=== PATIENT | male | born 1945 | race Caucasian/White ===

== ENCOUNTER 2023-11-07 10:30 | Emergency (ER) | payer MEDICARE ==
[~2023-11-07] VITALS: Ht 182.9 cm; Wt 90.7 kg
[2023-11-07 10:41] VITALS: BP 167/101
[2023-11-07 11:38] LABS: BASOPHILS ABSOLUTE AUTO 0.06 K/mm3 (0.00-0.23); BASOPHILS PERCENT AUTO 1 % (0-2); EOSINOPHILS ABSOLUTE AUTO 0.15 K/mm3 (0.00-0.68); EOSINOPHILS PERCENT AUTO 1 % (0-6); Hematocrit 41.7 % (37.0-53.0); Hemoglobin 13.9 g/dL (13.5-17.5); IMMATURE GRAN ABSOLUTE AUTO 0.05 K/mm3 (0.00-0.10); IMMATURE GRAN PERCENT AUTO 0 % (0-1); LYMPHOCYTES ABSOLUTE AUTO 2.88 K/mm3 (0.84-5.20); LYMPHOCYTES PERCENT AUTO 24 % (21-46); MONOCYTES ABSOLUTE AUTO 0.79 K/mm3 (0.16-1.47); MONOCYTES PERCENT AUTO 7 % (4-13); Mean Corpuscular HGB 31.4 pg (26.0-34.0); Mean Corpuscular HGB Conc 33.3 g/dL (31.5-36.5); Mean Corpuscular Volume 94 fL (80-100); Mean Platelet Volume 10.9 fL (9.1-12.4); NEUTROPHILS ABSOLUTE AUTO 7.85 K/mm3 (1.96-9.15); NEUTROPHILS PERCENT AUTO 67 % (41-73); Platelet Count 260 K/mm3 (150-400); RDW Standard Deviation 48.3 fL (35.1-46.3); Red Blood Cell Count 4.42 M/mm3 (4.30-5.90); White Blood Cell Count 11.78 K/mm3 (4.00-11.30)
[2023-11-07 12:02] LABS: Albumin, Blood 3.7 g/dL (3.4-5.0); Albumin/Globulin Ratio 1.1 (0.8-1.8); Bilirubin, Total 1.1 mg/dL (0.1-1.0); Bun/Creatinine Ratio 16.7 (12.0-20.0); Calcium, Blood 9.4 mg/dL (8.5-10.1); Creatinine, Blood 1.14 mg/dL (0.60-1.20); Globulin, Blood 3.5 g/dL (2.2-4.0); Potassium, Blood 4.2 mmol/L (3.5-5.5); Total Protein, Blood 7.2 g/dL (6.4-8.2)
[2023-11-07 12:06] LABS: Influenza A, PCR NEGATIVE (NEGATIVE); Influenza B, PCR NEGATIVE (NEGATIVE); Resp Syncytial Virus, PCR NEGATIVE (NEGATIVE); SARS-Cov-2 (COVID-19) PCR, MMC NEGATIVE (NEGATIVE)
[2023-11-07] MEDS ORDERED: METF500 PO (12:26)
[2023-11-07] MEDS ORDERED: LOSA50 PO (12:26)
[2023-11-07] MEDS ORDERED: AZIT250 PO (13:18)
[2023-11-07] MEDS ORDERED: Prednisone20 MG PO (13:18)
== END 2023-11-07 13:34 | disposition home or self-care (01) ==
LOC: ER 10:30
PROVIDERS: Physician Assistant
DX: J18.0 Bronchopneumonia, unspecified organism (principal); E11.9 Type 2 diabetes mellitus without complications; Z79.84 Long term (current) use of oral hypoglycemic drugs; Z79.52 Long term (current) use of systemic steroids; Z79.899 Other long term (current) drug therapy; Z87.891 Personal history of nicotine dependence; Z11.52 Encounter for screening for COVID-19
CPT/HCPCS: 0241U; 71046; 80053; 85025; 93005; 93010; 99285-25

== ENCOUNTER 2024-06-08 08:52 | Inpatient (IN) | payer MEDICARE ==
[~2024-06-08] VITALS: Ht 185.4 cm; Wt 89.0 kg
[~2024-06-08 08:52] MED LIST: AZIT250 PO; LOSA50 PO; METF500 PO; Prednisone20 MG PO
[2024-06-08 09:52] LABS: BASOPHILS ABSOLUTE AUTO 0.08 K/mm3 (0.00-0.23); BASOPHILS PERCENT AUTO 1 % (0-2); EOSINOPHILS ABSOLUTE AUTO 0.13 K/mm3 (0.00-0.68); EOSINOPHILS PERCENT AUTO 1 % (0-6); Hematocrit 42.6 % (37.0-53.0); Hemoglobin 13.7 g/dL (13.5-17.5); IMMATURE GRAN ABSOLUTE AUTO 0.05 K/mm3 (0.00-0.10); IMMATURE GRAN PERCENT AUTO 0 % (0-1); LYMPHOCYTES ABSOLUTE AUTO 3.44 K/mm3 (0.84-5.20); LYMPHOCYTES PERCENT AUTO 26 % (21-46); MONOCYTES ABSOLUTE AUTO 1.11 K/mm3 (0.16-1.47); MONOCYTES PERCENT AUTO 9 % (4-13); Mean Corpuscular HGB 31.6 pg (26.0-34.0); Mean Corpuscular HGB Conc 32.2 g/dL (31.5-36.5); Mean Corpuscular Volume 98 fL (80-100); Mean Platelet Volume 12.2 fL (9.1-12.4); NEUTROPHILS ABSOLUTE AUTO 8.21 K/mm3 (1.96-9.15); NEUTROPHILS PERCENT AUTO 63 % (41-73); Platelet Count 210 K/mm3 (150-400); RDW Coefficient Variation 14.8 % (11.7-14.2); RDW Standard Deviation 53.4 fL (35.1-46.3); Red Blood Cell Count 4.33 M/mm3 (4.30-5.90); White Blood Cell Count 13.02 K/mm3 (4.00-11.30)
[2024-06-08 10:20] LABS: Albumin, Blood 4.2 g/dL (3.4-5.0); Albumin/Globulin Ratio 1.6 (0.8-1.8); Bilirubin, Total 2.3 mg/dL (0.1-1.0); Bun/Creatinine Ratio 21.2 (12.0-20.0); Calcium, Blood 9.6 mg/dL (8.5-10.1); Creatinine, Blood 1.56 mg/dL (0.60-1.20); Globulin, Blood 2.7 g/dL (2.2-4.0); Total Protein, Blood 6.9 g/dL (6.4-8.2)
[2024-06-08] MEDS ORDERED: Furosemide 10 MG / ML 2ML Vial IV ONE (11:45)
[2024-06-08 12:00] LABS: CHOL/HDL RATIO 2.2; Cholesterol 100 mg/dL (50-200); HDL Cholesterol 45 mg/dL (>39); LDL/HDL RATIO 0.8; Low Density Lipoprotein Chol 37 mg/dL (0-110); Triglycerides 91 mg/dL (30-160); Very Low Density Lipoprot Chol 18 mg/dL (6-32)
[2024-06-08] MEDS ORDERED: Ondansetron HCl 2 MG / ML 2ML Vial IV PRN (12:20)
[2024-06-08] MEDS ORDERED: Magnesium Hydroxide Conc 10 ML UDC PO PRN (12:20)
[2024-06-08] MEDS ORDERED: FLU VACC TS2024-25(6MOS UP)/PF 45 MCG/0.5 ML SYRINGE IM SCH (12:20)
[2024-06-08] MEDS ORDERED: Aspirin 81 MG Chew PO SCH (13:00)
[2024-06-08] MEDS ORDERED: Atorvastatin 40 MG Tab PO SCH (14:00)
[2024-06-08 14:16] LABS: International Normalized Ratio 1.36; Prothrombin Time Results 14.2 Sec (9.7-11.5)
[2024-06-08 14:18] LABS: Anti-Xa UFH, PHA Monitoring >1.50 IU/mL
[2024-06-08 14:45] VITALS: BP 119/107
[2024-06-08] MEDS ORDERED: ELIQUIS2.5 MG PO (14:57)
[2024-06-08] MEDS ORDERED: LOSA25 PO (14:57)
--- NOTE | 2024-06-08 16:15 | NUR ---
REPORT RECIEVED FROM ER NURSE AT 1425. PT ARRIVED TO PCU AT 1440 VIA GURNEY AND ON RA. PT ABLE TO AMBULATE FROM RMORRISON IN THE HALLWAY TO PCU BED, TOLERATED FAIR. PT REPORT SLIGHT DYSPNEA WITH THE EXERTION. PT A/OX4 AT TIME OF ARRIVAL. PT ABLE TO ANSWER HISTORY QUESTIONS APPROPIATELY. PT ORIENTED TO ROOM AND CALL LIGHT. LUNGS SOUNDS DIM UPPER AND DIM WITH CRACKLES.
[2024-06-08] MEDS ORDERED: Insulin Human Lispro 100 Units/ML 3ML Syringe SC SCH (16:30)
[2024-06-08] MEDS ORDERED: Furosemide 10 MG/ML 4ML Vial IV SCH (18:00)
--- NOTE | 2024-06-08 18:09 | NUR ---
SHIFT SUMMARY PT A/OX4 AN COOPERATIVE OF CARE. PT ABLE TO EXPRESS NEEDS AND CALLS APPROPIATE. VSS SINCE ARRIVING TO UNIT. PT DENIED CHEST PAIN/PRESSURE SINCE ARRIVING TO UNIT. PT DID ENDORSE SLIGHT SOB AT TIMES WHILE IN BED AND WHEN PT IS AMBULATING. SATS REMAINED STABLE IN THE 90'S ON RA. PT INFORMED OF NPO AT MIDNIGHT FOR POSSIBLE ANGIO. PT HR AFIB WITH A CONTROLLED RATE. ORDER FOR HEP GTT TO BEGIN TONIGHT DUE TO PT TAKING BLOOD THINNER THIS MORNING AT HOME.
[2024-06-08 19:30] VITALS: BP 130/71
[2024-06-08] MEDS ORDERED: Heparin Sodium,Porcine/0.5 NS 500 ML IV SCH (21:00)
[2024-06-09] VITALS (14 sets, daily range): BP systolic 126–158; BP diastolic 79–131
[2024-06-09 04:13] LABS: BASOPHILS ABSOLUTE AUTO 0.07 K/mm3 (0.00-0.23); BASOPHILS PERCENT AUTO 1 % (0-2); EOSINOPHILS ABSOLUTE AUTO 0.14 K/mm3 (0.00-0.68); EOSINOPHILS PERCENT AUTO 1 % (0-6); Hematocrit 40.3 % (37.0-53.0); Hemoglobin 13.3 g/dL (13.5-17.5); IMMATURE GRAN ABSOLUTE AUTO 0.04 K/mm3 (0.00-0.10); IMMATURE GRAN PERCENT AUTO 0 % (0-1); LYMPHOCYTES ABSOLUTE AUTO 4.47 K/mm3 (0.84-5.20); LYMPHOCYTES PERCENT AUTO 37 % (21-46); MONOCYTES ABSOLUTE AUTO 0.89 K/mm3 (0.16-1.47); MONOCYTES PERCENT AUTO 7 % (4-13); Mean Corpuscular Volume 97 fL (80-100); Mean Platelet Volume 12.4 fL (9.1-12.4); NEUTROPHILS PERCENT AUTO 54 % (41-73); Platelet Count 176 K/mm3 (150-400); RDW Coefficient Variation 14.9 % (11.7-14.2); RDW Standard Deviation 53.5 fL (35.1-46.3); Red Blood Cell Count 4.15 M/mm3 (4.30-5.90); White Blood Cell Count 12.21 K/mm3 (4.00-11.30)
[2024-06-09 04:39] LABS: Anion Gap 13 mmol/L (3-11); Blood Urea Nitrogen 32 mg/dL (8-24); Bun/Creatinine Ratio 20.9 (12.0-20.0); CHOL/HDL RATIO 2.6; CO2, Blood 24 mmol/L (21-32); Calcium, Blood 9.4 mg/dL (8.5-10.1); Chloride, Blood 105 mmol/L (98-108); Cholesterol 105 mg/dL (50-200); Creatinine, Blood 1.53 mg/dL (0.60-1.20); Glomerular Filtration Rate 46 (60-); Glucose, Blood 139 mg/dL (70-99); HDL Cholesterol 41 mg/dL (>39); LDL/HDL RATIO 1.2; Low Density Lipoprotein Chol 49 mg/dL (0-110); Potassium, Blood 3.7 mmol/L (3.5-5.5); Sodium, Blood 138 mmol/L (136-145); Triglycerides 73 mg/dL (30-160); Very Low Density Lipoprot Chol 14 mg/dL (6-32)
[2024-06-09] MEDS ORDERED: Dose Adjust by Pharmacy XX STA (05:10)
--- NOTE | 2024-06-09 05:13 | NUR ---
CRITICAL PTT RESULT OF >139. CALLED PHARMACY RIGHT AWAY AND PUT THE HEPARIN GTT ON HOLD. HOLD INFUSION FOR 1 HOUR PER PHARMACY.
[2024-06-09] MEDS ORDERED: Metoprolol Succinate 25 MG TABCR PO SCH ×2 (09:00)
[2024-06-09] MEDS ORDERED: NS 250 ML IV ONE (09:04)
[2024-06-09] MEDS ORDERED: Verapamil HCL 2.5 MG/ML 2ML Injection ONE (09:04)
[2024-06-09] MEDS ORDERED: Heparin Sodium 1000 Units/ML 10ML MDV ONE ×2 (09:04→10:44)
[2024-06-09] MEDS ORDERED: Nitroglycerin 2 MG/20 ML BTL ONE (09:04)
[2024-06-09] MEDS ORDERED: NS 1,000 ML IV ONE ×2 (09:04→09:06)
[2024-06-09] MEDS ORDERED: Midazolam HCl 1MG / ML 2ML Vial ONE (09:06)
[2024-06-09] MEDS ORDERED: FentaNYL Citrate 50 MCG/ML 2 ML Injection ONE (09:06)
--- NOTE | 2024-06-09 09:49 | NUR ---
AM NOTE: PATIENT ALERT AND ORIENTED X4. EXPRESSING SOME NERVES AND ANXIETY SURROUNDING UPCOMING ANGIOGRAM. THIS RN REINFORECED ANGIOGRAM EDUCATION. DENIES PAINS/NUMBNESS/TINGLING. UP WITH SBA TO HELP MANAGE CORDS. IND WITH MOVEMENTS IN BED. ON ROOM AIR. SOB WITH ACTIVITY. DENIES COUGH. LUNGS SOUNDS CLEAR WITH SOME FINE CRACKLES IN BASES. EVEN AND UNLABORED RESPIRATIONS AT REST. TELE SHOWING SR WITH PVC'S. HR 80-100'S. DENIES CHEST PAIN/PRESSURE/PALPITATIONS. SBP 130'S. PPP. NO EDEMA NOTED. HEPARIN GTT INFUSING THIS AM AND PLACED ON HOLD AROUND 0920 FOR ANGIOGRAM. PHARMACY UPDATED. BOWEL TONES PRESENT. PATIENT HAS BEEN NPO SINCE MIDNIGHT. DENIES ABDOMINAL PAIN/NAUSEA. STRICT I&O. PATIENT EDUCATED ON STAFF MEASURING ALL INTAKE AND OUTPUT. SKIN OVERALL C/D/I. PATIENT LEFT FOR ANGIOGRAM AT 0927. AT BEDSIDE PRIOR TO ANGIOGRAM AND UPDATED ON PLAN OF CARE.
[2024-06-09] MEDS ORDERED: Ticagrelor 90 MG TABLET ONE (10:44)
[2024-06-09] MEDS ORDERED: Furosemide 10 MG / ML 2ML Vial ONE (12:03)
--- NOTE | 2024-06-09 12:29 | NUR ---
PATIENT RETURNS BACK FROM BOTTLE PACKER AT THIS TIME. RESPIRATORY RATE 20, PATIENT STATES HE IS FEELING SOB. COACHED THROUGH SLOW BREATHING. PATIENT ABLE TO RELAX. SATING 99-100% ON ROOM AIR. TELE SHOWING AFIB WITH HR 90-100'S. DENIES CHEST PAIN. RIGHT RADIAL SITE, TR BAND AND ARM BOARD IN PLACE. SOFT AND NONTENDER. NO SIGNS OF BLEEDING. RADIAL SITE PRECAUTIONS REINFORCED. RIGHT ELBOW VENOUS SITE WITH AMILCAR DRESSING OOZING, PRESSURE HELD AND OOZING RESOLVED. ADDITIONAL LASIX GIVEN DURING BOTTLE PACKER PROCEDURE. STRICT I&O. POST PROCEDURE VITALS IN PROGRESS.
[2024-06-09] MEDS ORDERED: NS 500 ML IV SCH (13:10)
--- NOTE | 2024-06-09 13:35 | NUR ---
DR. DAILEY TO BEDSIDE. ORDERS FOR THIS RN TO PLACE: - NORMAL SALINE 50 ML/HR X7 HOURS - START HEPARIN 4 HOURS POST TR BAND REMOVAL - 40 MG IV LASIX X1 TONIGHT - 80 MG IV LASIX BID STARTING 11/25 AM EKG COMPLETED AND IN CHART. AT BEDSIDE AND UPDATED. POST PROCEDURE VITALS CONTINUE.
[2024-06-09] MEDS ORDERED: HyDROXyzine HCl 25 MG Tab PO PRN (14:25)
[2024-06-09] MEDS ORDERED: LORazepam 2 MG/ML 1ML Injection IV PRN (14:25)
--- NOTE | 2024-06-09 15:48 | NUR ---
PATIENT VERY ANXIOUS WITH ANY STAFF IN ROOM DISCUSSING PLAN OF CARE. DR. GUNDERSON CALLED AND ANXIETY MEDS ORDERED. DAUGHTER JOSE CALLED WITH PATIENT PERMISSION AND UPDATED POST CHICKEN TENDER. PATIENT SITTING ON EDGE OF BED AT THIS TIME TALKING ON CELL PHONE. TR BAND REMOVAL IN PROGRESS. VITAL SIGNS STABLE. BED ALARM ON FOR SAFETY PATIENT GETS THE URGE TO PEE AND GETS TANGLED IN CORDS TRYING TO GET UP.
[2024-06-09] MEDS ORDERED: Furosemide 10 MG/ML 4ML Vial IV ONE (18:00)
--- NOTE | 2024-06-09 18:19 | NUR ---
TR BAND REMOVED AT 1720. PLAN TO RESTART HEPARIN 4 HOURS POST TR BAND REMOVAL. PHARMACY AND PATIENT UPDATED. TELE CONTINUES TO SHOW SR WITH PACS. REMAINS ON ROOM AIR. ANXIETY IMPROVED. MALE PW PLACED DUE TO PATIENT URGENCY WITH LASIX AND GETTING TANGLED IN CORDS. IV PULLED BY PATIENT BY ACCIDENT, NEW IV PLACED. BED ALARM IN PLACE. CONTINUES TO DENY CHEST PAIN/PRESSURE/PALPITATIONS.
[2024-06-09] MEDS ORDERED: LORazepam 2 MG/ML 1ML Injection IV ONE (21:46)
--- NOTE | 2024-06-09 22:34 | NUR ---
APPROX 2200 PT'S BED ALARM WENT OFF, CAME INTO THE ROOM TO FIND HIM SITTING ON THE EDGE OF THE BED SWAYING BACK AND FORTH WANTING TO STAND UP. I WENT TO HIS SIDE TO TALK HELP LAY HIM BACK DOWN BUT HE GRABBED MY ARMS AND KEPT TRYING TO STAND UP. I WAS TRYING TO REORIENT HIM AND KEEP HIM SAFE, PARAM (FIELD CONTACT PERSON) CAME IN TO HELP AND PT BEGAN TO KICK AND SWING AT US. HE WAS MUMBLING INCOHERENTLY AND PULLING AT ALL OF HIS LINES, CORDS, TUBES. REPEATEDLY SAID HE HAD TO GET UP TO PEE (PT HAS PUREWICK IN PLACE THAT IS PATENT AND FUNCTIONING) AND WOULD NOT REDIRECTABLE. KVNG (OPERATIONS LABEL CLERK) CAME IN TO ASSIST AND THE THREE OS US WERE ABLE TO GET HIM REPOSITIONED ON THE BED, HOWEVER, PT'S AGITATION INCREASED AND CONTINUED TO TRY AND FIGHT US OFF AND PULL AT ANYTHING HE COULD GRASP. HE DID NOT CALM DOWN OR UNDERSTAND HIS SITUATION EVEN WITH CONSTANT REORIENTATION. KVNG CALLED THE DR AND RECEIVED AN ORDER FOR ATIVAN IVP WHICH WAS GIVEN. KVNG ALSO CALLED FAMILY TO UPDATE THEM AND ASK ABOUT HIS NIGHTTIME BEHAVIOR AT HOME. ALEXX (RN) CAME IN TO ASSIST WELL AND HELPED CALM HIM DOWN LONG ENOUGH FOR SLEEP TO TAKE OVER. THERE WAS NO CLINICAL SITTER AT THE TIME SO I STAYED AT THIS BEDSIDE TO ENSURE HIS SAFETY UNTIL A SITTER CAN GET HERE. AVAILABLE TO I
[2024-06-10] VITALS (7 sets, daily range): BP systolic 122–149; BP diastolic 67–95
[2024-06-10] MEDS ORDERED: Dose Adjust by Pharmacy XX STA ×2 (04:40→11:44)
[2024-06-10 04:44] LABS: Bun/Creatinine Ratio 20.9 (12.0-20.0); Calcium, Blood 8.9 mg/dL (8.5-10.1); Creatinine, Blood 1.48 mg/dL (0.60-1.20); Potassium, Blood 2.9 mmol/L (3.5-5.5)
[2024-06-10 05:33] LABS: Hematocrit 36.8 % (37.0-53.0); Hemoglobin 12.5 g/dL (13.5-17.5); Mean Platelet Volume 12.2 fL (9.1-12.4); Platelet Count 159 K/mm3 (150-400)
[2024-06-10] MEDS ORDERED: Potassium Chloride 10 Meq Tablet SA PO ONE ×2 (05:34→18:00)
[2024-06-10] MEDS ORDERED: Potassium Chl 20MEQ/Water100ML 100 ML IV STA (05:44)
--- NOTE | 2024-06-10 06:33 | NUR ---
AT 0615 PT WOKE UP AGITATED SAYING HE HAD TO GET UP TO PEE. SITANGUS RAMIREZ, AT BEDSIDE BUT WAS UNABLE TO REDIRECT HIM AND ASKED ME FOR HELP. I ALSO WAS UNABLE TO REDIRECT OR REORIENT HIM TO HIS SITUATION, FIXATED ON GETTING UP TO GO TO THE BATHROOM AND "GET THE HELL OUT OF HERE". AFTER ABOUT 6 MINUTES OF KEEPING HIM IN THE BED, HE BECAME VERY AGGRESSIVE AND STARTED GRAB AND PULL AT ANGUS AND TRIED TO THROW A PUNCH AT ME. I CALLED OUT FOR HELP IN THE ROOM AND 5 MORE PEOPLE SHOWED UP AND WE WERE ALL ABLE TO GET HIM REPOSITIONED FURTHER UP THE BED AND HE EVENTUALLY TIRED OUT AND BEGAN TO REST AGAIN. THAT IS UNTIL HE WAS HOOKED UP TO THE EKG MACHINE AND BECAME AGITATED AGAIN. TWO SITTERS, MYSELF, AND THE HOME PERFORMANCE LABORER HAD TO KEEP IN BED FOR THE TEST.
[2024-06-10] MEDS ORDERED: Mag Sulfate 1 GM/D5% 100ML 100 ML IV ONE (07:50)
[2024-06-10] MEDS ORDERED: Potassium Chloride 20 MEQ TabCR PO ONE ×2 (07:50)
[2024-06-10] MEDS ORDERED: Mag Sulfate 1 GM/D5% 100ML 100 ML IV STA (07:52)
[2024-06-10] MEDS ORDERED: Clopidogrel Bisulfate 300 MG Cap PO ONE (09:00)
[2024-06-10] MEDS ORDERED: Furosemide 10 MG/ML 10ML Vial IV SCH ×2 (09:00)
[2024-06-10] MEDS ORDERED: Haloperidol Lactate Inj. 5 MG/ML Injection IV PRN (09:20)
[2024-06-10] MEDS ORDERED: Potassium Chloride 40 MEQ IV ONE (09:35)
[2024-06-10] MEDS ORDERED: Potassium Chl 20MEQ/Water100ML 100 ML IV SCH (10:00)
--- NOTE | 2024-06-10 12:48 | NUR ---
AM NOTE: PATIENT RESTING IN BED WITH EYES CLOSED. WAKES TO VOICE. WHEN AWAKE PATIENT VERY AGGITATED AND IRRITABLE. CONFUSED, ANGRY, NOT FOLLOWING DIRECTIONS, AT TIMES SWINGING AND KICKING AT STAFF, YELLING, AND NOT SAFE ALONE IN ROOM DUE TO TRYING TO GET OUT OF BED. SITTER AT BEDSIDE. TO BEDSIDE AROUND 0930, UPDATED BY THIS RN. DR. GUNDERSON CALLED THIS AM DUE TO AGGITATION AND PATIENT NOT FOLLOWING DIRECTIONS. HALDOL ORDERS IN PLACE. PATIENT CALM POST HALDOL ADMINISTRATION. TELE SHOWING SR WITH PAC'S. HR 80'S-100'S. SBP 120-130'S. S/P PCI WITH RIGHT RADIAL AND RIGHT ELBOW VENOUS SITE. SITES SOFT AND NON TENDER. TEGADERMS IN PLACE. HEPARIN GTT CONTINUES TO INFUSE PER EMAR. POTASSIUM AND MAG REPLACED THIS AM VIA IV. PATIENT NOT FOLLOWING DIRECTIONS TO SWALLOW PILLS AT THIS TIME. PLAN FOR ECHO TODAY. IV LASIX DOSE DECREASED THIS AM BY DR. DAILEY. SEE I&O CHARTING. ON 2-3L NASAL CANNULA SATING ABOVE 95%. LUNGS SOUNDS CLEAR AND DIM IN BASES. EVEN AND UNLABORED RESPIRATIONS. NO COUGH NOTED. BOWEL TONES PRESENT. PUREWICK IN PLACE DRAINING YELLOW URINE. PATIENT NOT ALERT ENOUGH TO EAT BREAKFAST OR LUNCH. ACHS BLOOD SUGARS. SMALL SCAB NOTED ON SCROTUM. PATIENT PULLING AT TIMES ON PUREWICK. VITAL SIGNS STABLE. AT BEDSIDE. THIS RN UPDATED DAUGHTER JOSE OVER PHONE.
--- NOTE | 2024-06-10 15:30 | NUR ---
ECHO COMPLETED THIS AFTERNOON. PATIENT WOKEN BY THIS RN. AGGITATED BUT ABLE TO TELL ME WHERE HE IS AND WHO HE IS. AT BEDSIDE ATTEMPTING WITH THIS RN AND SITTER TO HELP CALM PATIENT. PATIENT ABLE TO TAKE SIPS OF WATER. WITH WIFES HELP PATIENT TAKES ORAL PLAVIX, ASPIRIN, ATORVOSTATIN AND METOPROLOL THAT WERE DUE THIS MORNING. CARDIOLOGY DR. DAILEY UPDATED ON LATE PO ADMINISTRATION. POTASSIUM COMPLETED AT THIS TIME. LAB DRAW SCHEDULED FOR 1600. PATIENT SITTING UP IN BED AWAKE AT THIS TIME. DENIES FOOD AT THIS TIME. VITAL SIGNS STABLE. ORIENTATION AND ALERTNESS IMPROVING.
[2024-06-10 16:32] LABS: Bun/Creatinine Ratio 19.2 (12.0-20.0); Calcium, Blood 9.3 mg/dL (8.5-10.1); Creatinine, Blood 1.3 mg/dL (0.60-1.20); Potassium, Blood 3.4 mmol/L (3.5-5.5)
--- NOTE | 2024-06-10 17:10 | NUR ---
DR. GUNDERSON CALLED BY THIS RN TO UPDATE ON BMP LAB RESULTS. NO NEW ORDERS FOR THIS RN TO PLACE.
[2024-06-10] MEDS ORDERED: TraZODone HCl 50 MG Tab PO PRN (17:15)
--- NOTE | 2024-06-10 18:18 | NUR ---
SHIFT SUMMARY: PATIENT IS ALERT AND ORIENTED X3. BEING VERY PLEASENT AND COOPERATIVE THIS EVENING. FOLLOWING COMMANDS. DENIES PAIN. TELE SHOWING SR WITH PVC/PAC'S WITH HR 80-100'S. RIGHT RADIAL SITE C/D/I AND NO SIGNS OF BLEEDING. HEPARIN GTT INFUSING PER EMAR. ON ROOM AIR AT THIS TIME SATING ABOVE 95%. BOWEL TONES PRESENT. TOLERATING PO DIET. ACHS BLOOD SUGARS. HAS GONE HOME. SITTER REMAINS AT BEDSIDE. PUREWICK REMAINS IN PLACE. CALL LIGHT IN REACH. DENIES NEEDS.
--- NOTE | 2024-06-10 21:26 | NUR ---
ASSUMPTION OF CARE ASSUMED CARE OF PATIENT AT 1900, BEDSIDE SHIFT REPORT RECEVIED FROM KITTY RN. PT RESTING IN BED, SLEEPING BUT AROUSABLE. PT ORIENTED X4, ANSWERS QUESTIONS APPROPRIATELY, FOLLOWS DIRECTION WHEN PROMPTED AND IS ABLE TO MAKE HIS NEEDS KNOWN. PT MOVES EXTREMITIES EQUALLY BILATERALLY. PT DENIES PAIN AT TIME OF ASSESSMENT. HR 90-100 SINUS, MAP >65 PT DENIES CP/PRESSURE. PT ON RA, OXYGEN SATURATION >95%. ABDOMEN SOFT, BOWEL TONES ACTIVE THROUGHOUT. PT DENIES N/V. MALE PUREWICK IN PLACE TO SUCTION WITH GOOD SEAL. PIV IN PLACE TO R WRIST AND L WRIST. HEPARIN INFUSING AT 10UNITS/KG/HR PER ORDER, HEPAIN VERIFIED WITH KVNG VIDAL. 1:1 SITTER AT THE BEDSIDE, BED IN LOWEST POSITION, CALL LIGHT WITHIN REACH, CARE CONTINUES.
[2024-06-11] MEDS ORDERED: Dose Adjust by Pharmacy XX STA (01:36)
[2024-06-11 04:17] VITALS: BP 143/69
[2024-06-11 04:20] VITALS: BP 143/69
--- NOTE | 2024-06-11 05:59 | NUR ---
SHIFT SUMMARY NO ACUTE CHANGES THIS SHIFT. PT CONTINUES TO REST IN BED SLEEPING BUT AROUSABLE. PT ANSWERS QUESTIONS APPROPRIATELY, FOLLOS DIRECTION WHEN PROMPTED AND IS ABLE TO MAKE HIS NEEDS KNOWN. PT MOVES EXTREMITIES EQUALLY BILATERALLY. PT DENIES PAIN THIS SHIFT. PT IS IMPULSIVE AT TIMES, BED ALARM ON, 1:1 SITTER DC'D THIS SHIFT. HR 80-110'S SINUS, MAP >65. PT DENIES CP/PRESSURE. PT ON RA, PLACED ON 3LPM VIA NC WHILE SLEEPING. ABDOMEN SOFT, BOWEL TONES ACTIVE THROUGHOUT. MALE PUREWICK IN PLACE TO SUCTION WITH GOOD SEAL, YELLOW OUTPUT NOTED. PIV IN PLACE TO LEFT WRIST AND RIGHT WRIST, HEPARIN INFUSING AT 10UNTIS/KG/HR PER PHARMACY. BED IN LOWEST POSITION, CALL LIGHT WITHIN REACH, CARE CONTINUES.
[2024-06-11 06:30] LABS: Hematocrit 37.9 % (37.0-53.0); Mean Corpuscular HGB 32.3 pg (26.0-34.0); Mean Corpuscular HGB Conc 34.3 g/dL (31.5-36.5); Mean Corpuscular Volume 94 fL (80-100); Mean Platelet Volume 11.7 fL (9.1-12.4); Platelet Count 178 K/mm3 (150-400); RDW Coefficient Variation 14.6 % (11.7-14.2); Red Blood Cell Count 4.02 M/mm3 (4.30-5.90); White Blood Cell Count 10.33 K/mm3 (4.00-11.30)
[2024-06-11 06:57] LABS: Bun/Creatinine Ratio 15.9 (12.0-20.0); Creatinine, Blood 1.57 mg/dL (0.60-1.20); Potassium, Blood 3.3 mmol/L (3.5-5.5)
[2024-06-11 07:24] VITALS: BP 127/75
--- NOTE | 2024-06-11 08:10 | NUR ---
AM NOTE this rn assumed care at 0700. vital signs stable. patient is alert and oriented x4. neuro is intact. patient is able to make needs known and use elisabeth light appropriately. denies pain, chest pain/pressure or shortness of breath. see shift assessment for further detials. plan of care up to date at this time
--- NOTE | 2024-06-11 08:41 | NUR ---
doctor in the room md DAILEY, healthcare architect, is in the room and discussing plan of care with the patient. plan for patient to do stress test and if stress test is negative no intervention needs to be done, if positive plan to do another stent as an outpatient. patient agrees to this plan of care
--- NOTE | 2024-06-11 08:46 | NUR ---
update md walters in the room with md johnson and discussed plan of care. plan of care remains up to date. see previous notes
[2024-06-11] MEDS ORDERED: K-TAB ER20 ME1 PO (08:48)
[2024-06-11] MEDS ORDERED: FURO20 PO (08:48)
[2024-06-11] MEDS ORDERED: Potassium Chloride 20 MEQ TabCR PO ONE (09:00)
[2024-06-11] MEDS ORDERED: Clopidogrel Bisulfate 75 MG Tab PO SCH (09:00)
[2024-06-11] MEDS ORDERED: Apixaban 5 MG Tab PO SCH (09:00)
--- NOTE | 2024-06-11 10:48 | NUR ---
update patient back in room from pictures for first part of stress test. remains npo for second part this afternoon.
[2024-06-11 11:28] VITALS: BP 116/66
[2024-06-11] MEDS ORDERED: Torsemide 20 MG TAB PO SCH (12:00)
[2024-06-11] MEDS ORDERED: Caffeine Citrated 60 MG/3 ML Vial ONE (13:31)
[2024-06-11] MEDS ORDERED: Regadenoson 0.4 MG/5 ML SYRINGE ONE (13:31)
--- NOTE | 2024-06-11 13:38 | NUR ---
stress test second part of stress test is being done
[2024-06-11 15:45] VITALS: BP 136/91
--- NOTE | 2024-06-11 18:10 | NUR ---
shift summary see previous notes. stress test back. plan to discharge patient, awaiting to see ck before patient leaves and is aware of this. vitals remain stable. neuro remains intact. no acute changes
[2024-06-11] MEDS ORDERED: CLOP75 PO (18:27)
[2024-06-11] MEDS ORDERED: LIPITOR80 MG PO (18:27)
[2024-06-11] MEDS ORDERED: ASPI81CH PO (18:27)
[2024-06-11] MEDS ORDERED: TORSE20 PO (18:27)
[2024-06-11] MEDS ORDERED: DULCOLAX400 MG/5 M PO (18:28)
[2024-06-11] MEDS ORDERED: TRAZ50 PO (18:29)
[2024-06-11] MEDS ORDERED: METO25ER PO (18:29)
[2024-06-11] MEDS ORDERED: Glipizide ER2.5 MG PO (18:30)
== END 2024-06-11 19:40 | disposition home or self-care (01) | DRG 321 ==
LOC: ER 08:52 → PCU 12:16
PROVIDERS: Emergency Medicine; Student in an Organized Health Care Education/Training Program; ADMIT Internal Medicine
PROC: 027034Z Dilation of Coronary Artery, One Artery with Drug-eluting Intraluminal Device, Percutaneous Approach (ICD-10-PCS; principal; 2024-06-09)
PROC: 4A023N8 Measurement of Cardiac Sampling and Pressure, Bilateral, Percutaneous Approach (ICD-10-PCS; 2024-06-09)
PROC: B2111ZZ Fluoroscopy of Multiple Coronary Arteries using Low Osmolar Contrast (ICD-10-PCS; 2024-06-09)
PROC: B240ZZ3 Ultrasonography of Single Coronary Artery, Intravascular (ICD-10-PCS; 2024-06-09)
DX: I13.0 Hypertensive heart and chronic kidney disease with heart failure and stage 1 through stage 4 chronic kidney disease, or unspecified chronic kidney disease (principal); G92.8 Other toxic encephalopathy; I50.23 Acute on chronic systolic (congestive) heart failure; I50.22 Chronic systolic (congestive) heart failure; I45.2 Bifascicular block; N17.9 Acute kidney failure, unspecified; I25.10 Atherosclerotic heart disease of native coronary artery without angina pectoris; I48.0 Paroxysmal atrial fibrillation; E78.5 Hyperlipidemia, unspecified; I25.5 Ischemic cardiomyopathy; E11.22 Type 2 diabetes mellitus with diabetic chronic kidney disease; N18.30 Chronic kidney disease, stage 3 unspecified; Z79.84 Long term (current) use of oral hypoglycemic drugs; Z79.899 Other long term (current) drug therapy
CPT/HCPCS: 36415; 36416; 71046; 76937; 78452; 80048; 80053; 80061; 82570; 82947; 83036; 83735; 83880; 84300; 84484; 85014; 85018; 85025; 85027; 85049; 85347; 85520; 85610; 85730; 92978; 93005; 93010; 93306; 93456; 96374; 99152; 99153; 99285-25; A9270; A9500; C1725; C1753; C1769; C1874; C1887; C1894; C9600; J0706; J1630; J1644; J1940; J2060; J2250; J2785; J3010; J3475; J3480; J7030; J7040; J7050; Q9957; Q9967

== ENCOUNTER 2024-08-18 00:09 | Emergency (ER) | payer OTHER, MEDICARE ==
[~2024-08-18] VITALS: Ht 185.4 cm; Wt 88.0 kg
[~2024-08-18 00:09] MED LIST changes: +ASPI81CH PO; +CLOP75 PO; +DULCOLAX400 MG/5 M PO; +ELIQUIS2.5 MG PO; +FURO20 PO; +Glipizide ER2.5 MG PO; +K-TAB ER20 ME1 PO; +LIPITOR80 MG PO; +LOSA25 PO; +METO25ER PO; +TORSE20 PO; +TRAZ50 PO
[2024-08-18] MEDS ORDERED: HYDROcodone 5-APAP 325 TAB PO ONE (01:05)
[2024-08-18] MEDS ORDERED: Morphine Sulfate 4 MG/1 ML Injection IV ONE (02:20)
[2024-08-18] MEDS ORDERED: Ondansetron HCl 2 MG / ML 2ML Vial IV ONE (02:20)
[2024-08-18 03:00] VITALS: BP 120/79
[2024-08-18] MEDS ORDERED: RX Prepack 6 Tabs Oxycodone 5mg UD ONE (03:05)
[2024-08-19] MEDS ORDERED: FARXIGA10 MG PO (08:03)
[2024-08-19] MEDS ORDERED: PREDNISOLO15 MG/5 ML (08:04)
== END 2024-08-18 03:48 | disposition home or self-care (01) ==
LOC: ER 00:09
DX: S42.202A Unspecified fracture of upper end of left humerus, initial encounter for closed fracture (principal); I11.0 Hypertensive heart disease with heart failure; I50.9 Heart failure, unspecified; E11.9 Type 2 diabetes mellitus without complications; I48.91 Unspecified atrial fibrillation; W01.0XXA Fall on same level from slipping, tripping and stumbling without subsequent striking against object, initial encounter; Z79.02 Long term (current) use of antithrombotics/antiplatelets; Z79.899 Other long term (current) drug therapy; Z88.8 Allergy status to other drugs, medicaments and biological substances
CPT/HCPCS: 29105; 70450; 73030; 73502; 93005; 93010; 96374-59; 96375-59; 99284-25; A9270; J2270; J2405

== ENCOUNTER 2024-08-19 09:16 | Emergency (ER) | payer MEDICARE ==
[~2024-08-19] VITALS: Ht 185.4 cm; Wt 86.2 kg
[~2024-08-19 09:16] MED LIST changes: +FARXIGA10 MG PO; +PREDNISOLO15 MG/5 ML
[2024-08-19 10:13] VITALS: BP 128/86
== END 2024-08-19 12:06 | disposition home or self-care (01) ==
LOC: ER 09:16
DX: S70.02XA Contusion of left hip, initial encounter (principal); I48.91 Unspecified atrial fibrillation; I11.0 Hypertensive heart disease with heart failure; I50.22 Chronic systolic (congestive) heart failure; I25.10 Atherosclerotic heart disease of native coronary artery without angina pectoris; E11.9 Type 2 diabetes mellitus without complications; Z79.01 Long term (current) use of anticoagulants; Z79.52 Long term (current) use of systemic steroids; Z79.84 Long term (current) use of oral hypoglycemic drugs; Z79.899 Other long term (current) drug therapy; W10.9XXA Fall (on) (from) unspecified stairs and steps, initial encounter
CPT/HCPCS: 73502; 99283-25

== ENCOUNTER 2024-08-22 09:05 | Emergency (ER) | payer MEDICARE ==
[~2024-08-22] VITALS: Ht 185.4 cm; Wt 86.2 kg
[2024-08-22] MEDS ORDERED: HYDROcodone 5-APAP 325 TAB PO ONE (11:15)
[2024-08-22] MEDS ORDERED: HYDR1TAB94 PO (11:55)
[2024-08-22 12:22] VITALS: BP 101/70
== END 2024-08-22 13:05 | disposition home or self-care (01) ==
LOC: ER 09:05
DX: S42.202A Unspecified fracture of upper end of left humerus, initial encounter for closed fracture (principal); I48.91 Unspecified atrial fibrillation; E11.9 Type 2 diabetes mellitus without complications; I11.0 Hypertensive heart disease with heart failure; I50.9 Heart failure, unspecified; X58.XXXA Exposure to other specified factors, initial encounter; Z79.899 Other long term (current) drug therapy; Z79.02 Long term (current) use of antithrombotics/antiplatelets; Z88.8 Allergy status to other drugs, medicaments and biological substances
CPT/HCPCS: 99283; A9270

== ENCOUNTER 2024-09-05 18:00 | Inpatient (IN) | payer MEDICARE ==
[~2024-09-05] VITALS: Ht 188 cm; Wt 77.8 kg
[~2024-09-05 18:00] MED LIST changes: +HYDR1TAB94 PO
[2024-09-05 19:25] LABS: BASOPHILS ABSOLUTE AUTO 0.02 K/mm3 (0.00-0.23); BASOPHILS PERCENT AUTO 0 % (0-2); EOSINOPHILS ABSOLUTE AUTO 0.01 K/mm3 (0.00-0.68); EOSINOPHILS PERCENT AUTO 0 % (0-6); Hematocrit 34.4 % (37.0-53.0); Hemoglobin 11.4 g/dL (13.5-17.5); IMMATURE GRAN ABSOLUTE AUTO 0.12 K/mm3 (0.00-0.10); IMMATURE GRAN PERCENT AUTO 1 % (0-1); LYMPHOCYTES ABSOLUTE AUTO 1.53 K/mm3 (0.84-5.20); LYMPHOCYTES PERCENT AUTO 11 % (21-46); MONOCYTES ABSOLUTE AUTO 1.18 K/mm3 (0.16-1.47); MONOCYTES PERCENT AUTO 9 % (4-13); Mean Corpuscular HGB 30.9 pg (26.0-34.0); Mean Corpuscular HGB Conc 33.1 g/dL (31.5-36.5); Mean Corpuscular Volume 93 fL (80-100); Mean Platelet Volume 12.1 fL (9.1-12.4); NEUTROPHILS ABSOLUTE AUTO 10.98 K/mm3 (1.96-9.15); NEUTROPHILS PERCENT AUTO 79 % (41-73); Platelet Count 192 K/mm3 (150-400); RDW Coefficient Variation 18.1 % (11.7-14.2); RDW Standard Deviation 62.1 fL (35.1-46.3); Red Blood Cell Count 3.69 M/mm3 (4.30-5.90); White Blood Cell Count 13.84 K/mm3 (4.00-11.30)
[2024-09-05 19:39] LABS: International Normalized Ratio 1.46; Prothrombin Time Results 15.2 Sec (9.7-11.5)
[2024-09-05 19:47] LABS: Alanine Aminotransfer (ALT/SGP 411 U/L (12-78); Albumin, Blood 2.9 g/dL (3.4-5.0); Albumin/Globulin Ratio 1.1 (0.8-1.8); Alk Phos 136 U/L (50-136); Anion Gap 17 mmol/L (3-11); Aspartate Aminotrans (AST/SGOT 551 U/L (12-37); Bilirubin, Total 5.2 mg/dL (0.1-1.0); Blood Urea Nitrogen 65 mg/dL (8-24); CO2, Blood 23 mmol/L (21-32); Calcium, Blood 8.7 mg/dL (8.5-10.1); Chloride, Blood 95 mmol/L (98-108); Creatinine, Blood 1.97 mg/dL (0.60-1.20); Ethanol (Alcohol), Blood, Med <3 mg/dL; Globulin, Blood 2.7 g/dL (2.2-4.0); Glomerular Filtration Rate 34 (60-); Glucose, Blood 113 mg/dL (70-99); Magnesium, Blood 2.5 mg/dL (1.6-2.4); Potassium, Blood 4.5 mmol/L (3.5-5.5); Sodium, Blood 130 mmol/L (136-145); Total Protein, Blood 5.6 g/dL (6.4-8.2)
[2024-09-05] MEDS ORDERED: Ondansetron HCl 2 MG / ML 2ML Vial IV PRN (21:15)
[2024-09-05] MEDS ORDERED: Furosemide 10 MG/ML 4ML Vial IV SCH (22:00)
[2024-09-05] MEDS ORDERED: Piperacillin/Tazobactam Sod 3.375 GM in NS 100 ML IV SCH (22:00)
[2024-09-05] MEDS ORDERED: Isosorbide Mono30 MG PO (22:51)
[2024-09-06] MEDS ORDERED: Insulin Human Lispro 100 Units/ML 3ML Syringe SC SCH
--- NOTE | 2024-09-06 00:38 | NUR ---
PATIENT IS A NEW ADMIT FROM THE ED. ALERT, ORIENTED, BEDREST, AND THREE PERSON TRANSFER FROM [facility] TO BED. REPORTS TOO WEAK TO STAND AT THIS TIME. DENIES CHEST PAIN, SOB, AND N/V. ON ROOM AIR. PUREWICK DEVICE IN PLACE FROM ED AND SETUP AGAIN. CBG 103 Q6 CHECK. SPOUSE PRESENT AND REPORTS WILL STAY OVERNIGHT. LEFT HUMEROUS FX FROM GLF AT HOME AND SLING IN PLACE. REPORTS LIVES IN [place] AT [facility]. ORIENTED TO ROOM AND CALL LIGHT SYSTEM. [facility].
--- NOTE | 2024-09-06 00:48 | NUR ---
SURGERY CONSULT CALLED INTO ANSWERING SERVICE.
[2024-09-06] MEDS ORDERED: NS 250 ML IV PRN (02:55)
--- NOTE | 2024-09-06 04:05 | NUR ---
SHIFT SUMMARY PATIENT HAD NO ACUTE CHANGES. ALERT ORIENTED WITH CONFUSION AT TIMES, BEDREST. PUREWICK IN PLACE. DENIES CHEST PAIN, SOB, AND N/V. VSS/AFEBRILE. PIV INTACT. LEFT HUMEROUS FX WITH SLING IN PLACE. CBG 106. SPOUSE STAYED OVERNIGHT. CALL LIGHT IN REACH. BED IN LOWEST POSITION. WILL CONTINUE TO MONITOR UNTIL DAY SHIFT NURSE ASSUMES CARE.
[2024-09-06 05:02] LABS: BASOPHILS ABSOLUTE AUTO 0.02 K/mm3 (0.00-0.23); BASOPHILS PERCENT AUTO 0 % (0-2); EOSINOPHILS ABSOLUTE AUTO 0.03 K/mm3 (0.00-0.68); EOSINOPHILS PERCENT AUTO 0 % (0-6); Hematocrit 36.5 % (37.0-53.0); Hemoglobin 12.2 g/dL (13.5-17.5); IMMATURE GRAN PERCENT AUTO 1 % (0-1); LYMPHOCYTES ABSOLUTE AUTO 1.78 K/mm3 (0.84-5.20); LYMPHOCYTES PERCENT AUTO 13 % (21-46); MONOCYTES ABSOLUTE AUTO 1.22 K/mm3 (0.16-1.47); MONOCYTES PERCENT AUTO 9 % (4-13); Mean Corpuscular HGB 31.5 pg (26.0-34.0); Mean Corpuscular HGB Conc 33.4 g/dL (31.5-36.5); Mean Corpuscular Volume 94 fL (80-100); Mean Platelet Volume 11.6 fL (9.1-12.4); NEUTROPHILS ABSOLUTE AUTO 10.86 K/mm3 (1.96-9.15); NEUTROPHILS PERCENT AUTO 78 % (41-73); Platelet Count 208 K/mm3 (150-400); RDW Coefficient Variation 18.6 % (11.7-14.2); RDW Standard Deviation 64.2 fL (35.1-46.3); Red Blood Cell Count 3.87 M/mm3 (4.30-5.90); White Blood Cell Count 14.01 K/mm3 (4.00-11.30)
[2024-09-06 05:37] LABS: Albumin, Blood 3.1 g/dL (3.4-5.0); Bilirubin, Total 5.6 mg/dL (0.1-1.0); Bun/Creatinine Ratio 33.7 (12.0-20.0); Calcium, Blood 8.8 mg/dL (8.5-10.1); Creatinine, Blood 1.99 mg/dL (0.60-1.20); Globulin, Blood 3.1 g/dL (2.2-4.0); Magnesium, Blood 2.8 mg/dL (1.6-2.4); Potassium, Blood 4.2 mmol/L (3.5-5.5); Total Protein, Blood 6.2 g/dL (6.4-8.2)
[2024-09-06 05:53] LABS: International Normalized Ratio 1.37; Prothrombin Time Results 14.3 Sec (9.7-11.5)
[2024-09-06 06:01] VITALS: BP 112/67
[2024-09-06 07:52] VITALS: BP 117/87
--- NOTE | 2024-09-06 08:10 | NUR ---
CALLED DR BUTLER PT COUGH. ORDERS PENDING
[2024-09-06] MEDS ORDERED: Guaifenesin/Dextromethorphan Syrup 5 ML UDC PO PRN (08:15)
[2024-09-06] MEDS ORDERED: Clopidogrel Bisulfate 75 MG Tab PO SCH (09:00)
[2024-09-06] MEDS ORDERED: Aspirin 81 MG Chew PO SCH (09:00)
[2024-09-06] MEDS ORDERED: Metoprolol Succinate 25 MG TABCR PO SCH (09:00)
--- NOTE | 2024-09-06 16:53 | NUR ---
PER DR GUNDERSON, OKAY FULL LIQUID DIET TONITE, NPO MIDNITE IF NEED SURGERY, WOULD BE TOMORROW.
[2024-09-06 16:57] VITALS: BP 105/77
[2024-09-06] MEDS ORDERED: Bumetanide 0.25 MG/ML 4ML ViaL IV SCH (18:00)
--- NOTE | 2024-09-06 19:41 | NUR ---
PT PLEASANT TODAY. HAD MRCP THIS AFTERNOON. IN ROOM AT THIS TIME. PT EATING SOME OF FULL LIQUID DIET FOR TONITE. ORDERS FOR NPO AT MIDNITE TONITE. SWELLING DOWN SIGNIFICANTLY IN LEFT HAND, AND SOME IN LEGS ALSO. MED FOR COUGH X2 TODAY. STATES HELPS. PEND DISCUSSION TOMORROW AM WITH DR TO SEE IF NEEDS SURGERY OR NOT. THEN DR REESE WILL DECIDE ON IF CAN EAT. PASSED INFO TO MARIA T VIDAL. BED IN LOW POSITIOIN, CALL LITE IN REACH, CALLS APPROP
[2024-09-06] MEDS ORDERED: OxyCODONE HCL 5 MG TAB PO PRN (21:00)
[2024-09-06 21:27] VITALS: BP 107/81
--- NOTE | 2024-09-07 06:47 | NUR ---
RECOVERY MANAGER SUMMARY PT A/OX 2. AT BEDSIDE T/O THE NIGHT. PT MADE NPO AT MIDNIGHT PER DR ORDER. PT HAS BROKEN LEFT ARM. GALL STONES. PT REPORTING 710 PAIN. CALL TO HOSPITALIST. NEW ORDER FOR 5MG OXYCODONE Q6PRN. PT ABD DISTENDED AND EDEMA TO BLE AND LEFT ARM THOUGH IMPROVING. PT GIVEN BUMEX AT 1817--ONLY 500 MLS URINE OUT FOR SHIFT. PT ON PUREWICK. PT ABLE TO FOLLOW DIRECTIONS BUT IS CONFUSED--INTERMITTANTLY. CALL LIGHT ACCESSIBLE.
[2024-09-07 08:08] VITALS: BP 104/82
[2024-09-07] MEDS ORDERED: Metoprolol Succinate 25 MG TABCR PO SCH (09:00)
--- NOTE | 2024-09-07 09:00 | NUR ---
pt laying in bed awake a/ox3-4, pleasant and cooperative with care, follows commadns well, denies pain, lungs are clear in upper rodriguez, with fine crackles in bases, resp even and unlabored, on r/a, hrr, 2+ edema noted to b/l le, ppp+1, cap refill<3 sec, vs stable, afebrile, piv to rfa, site is clear and patent, btx4, abd round distended hyper active bowel tones, male purwick in place for voids, skin has mepilex to coccyx, maew, weak, esau, call light in reach.
[2024-09-07 09:32] LABS: Bilirubin, Total 5.1 mg/dL (0.1-1.0); Bun/Creatinine Ratio 34.8 (12.0-20.0); Creatinine, Blood 2.04 mg/dL (0.60-1.20); Globulin, Blood 3.1 g/dL (2.2-4.0); Potassium, Blood 4.1 mmol/L (3.5-5.5); Total Protein, Blood 6.1 g/dL (6.4-8.2)
--- NOTE | 2024-09-07 12:44 | NUR ---
and Dr. Land had a meeting with pt and his spouce about plan. pt up in recliner. PT worked with him this am and tx him with gate belt and one person assist, call light in reach.
[2024-09-07 17:07] VITALS: BP 109/83
--- NOTE | 2024-09-07 18:35 | NUR ---
PT QUITE PLEASAANT THIS AFTERNOON, AT BEDSIDE MOST OF AFTERNOON. DAUGHTER CALLED FOR UPDATES. PT COUGH SOME BETTER. DID GET UP TO CHAIR WITH 2 MOD ASST. NO FURHTER CHANGES NOTED TODAY. BED IN LOW POSITION, CALL LITE IN [facility], CALLS APPROP
[2024-09-07 20:14] VITALS: BP 102/71
[2024-09-07 23:56] VITALS: BP 108/76
--- NOTE | 2024-09-08 00:14 | NUR ---
NURSE NOTE CALLED HOSPITALIST AT 0012 TO SEE IF Q6 BG AND INSULIN IS STILL OKAY FOR PT WHEN HE NOW HAS DIET. RN RECIEVED ORDERS FROM HOSPITALIST.
[2024-09-08 04:06] VITALS: BP 130/74
--- NOTE | 2024-09-08 06:24 | NUR ---
SHIFT SUMMARY PT HAS BEEN RESTING IN BED COMFORTABLY OVERNIGHT. PT HAS BEEN AOX4, CALM AND COOPERATIVE. PT HAD NO COMPLAINTS OVERNIGHT. NO ACUTE EVENTS OVERNIGHT.
[2024-09-08] MEDS ORDERED: Insulin Human Lispro 100 Units/ML 3ML Syringe SC SCH (07:30)
[2024-09-08 08:21] VITALS: BP 129/95
[2024-09-08 09:46] LABS: HEPATITIS B SURFACE ANTIBODY <3.10 IU/L; HEPATITIS B SURFACE ANTIGEN Negative (Negative); HEPATITIS BE ANTIBODY Negative (Negative); HEPATITIS BE ANTIGEN Negative (Negative)
[2024-09-08 09:51] LABS: Bilirubin, Total 5.2 mg/dL (0.1-1.0); Bun/Creatinine Ratio 36.3 (12.0-20.0); Creatinine, Blood 2.04 mg/dL (0.60-1.20); Potassium, Blood 3.7 mmol/L (3.5-5.5)
[2024-09-08 11:33] LABS: HEPATITIS A ANTIBODY, IGM Negative (Negative); HEPATITIS B CORE ANTIBODY, IGM Negative (Negative); HEPATITIS B SURFACE ANTIGEN Negative (Negative); HEPATITIS C AB CIA INTERP Negative (Negative); HEPATITIS C ANTIBODY CIA INDEX 0.08 IV
--- NOTE | 2024-09-08 15:24 | NUR ---
SHIFT SUMMARY PATIENT IN BED THIS SHIFT. A/OX 2-3. NONSENSICAL SPEECH, INAPPROPRIATE YELLING INTERMITTENTLY. JAUNDICE SKIN AND SCLERA, OBTUNDED ABDOMEN. NOT EATING WELL THIS SHIFT, STATING HE DOESN'T WANT IT, ENCOURAGED TO EAT AND PATIENT JUST CLOSES HIS EYES. ON DROPLET ISO FOR INFLUENZA. HASN'T USED CALL LIGHT THIS SHIFT, NOT MAKING NEEDS KNOWN. CALL LIGHT IN REACH.
[2024-09-08 15:56] VITALS: BP 114/83
--- NOTE | 2024-09-08 16:05 | NUR ---
C/O 8/10 L ARM PAIN, MEDICATED PER MAR. LIMB ADJUSTED PER TOLERANCE.
[2024-09-08 20:03] VITALS: BP 135/82
[2024-09-08] MEDS ORDERED: Apixaban 5 MG Tab PO SCH (21:00)
[2024-09-09 02:18] VITALS: BP 116/81
[2024-09-09 06:02] LABS: Albumin, Blood 3.1 g/dL (3.4-5.0); Bun/Creatinine Ratio 41.6 (12.0-20.0); Calcium, Blood 9.1 mg/dL (8.5-10.1); Creatinine, Blood 1.9 mg/dL (0.60-1.20); Globulin, Blood 3.2 g/dL (2.2-4.0); Potassium, Blood 4.1 mmol/L (3.5-5.5); Total Protein, Blood 6.3 g/dL (6.4-8.2)
--- NOTE | 2024-09-09 06:21 | NUR ---
SHIFT SUMMARY PT IS RESTING IN BED COMFORTABLY. PT HAD A COUGHING FIT EARLY IN THE SHIFT, SO ROBITUSSIN WAS GIVEN. PT HAS BEEN CONFUSED AT TIMES. PT HAS PRESSED CALL LIGHT FOR NO REASON TWICE ON THIS SHIFT. OTHERWISE, PT HAS BEEN CALM AND COOPERATIVE. NO ACUTE EVENTS OVERNIGHT.
[2024-09-09 07:52] VITALS: BP 129/83
[2024-09-09] MEDS ORDERED: Torsemide 20 MG TAB PO SCH (09:00)
[2024-09-09] MEDS ORDERED: Benzonatate 100 MG Cap PO PRN (13:50)
[2024-09-09 15:54] VITALS: BP 133/88
--- NOTE | 2024-09-09 18:10 | NUR ---
PT HAD A FEW COUGHING BOUTS IN THE SHIFT AND THIS NURSE REQUESTED TESSALON PEARLS PRN WITH FULL EFFECT. PT HAS NO C/O PAIN, DIZZINESS, SOB OR CHEST PAIN. PT HAS NO QUESTIONS OR CONCERNS AT THIS TIME
[2024-09-09 20:45] VITALS: BP 123/65
[2024-09-10 02:01] VITALS: BP 125/85
--- NOTE | 2024-09-10 05:27 | NUR ---
SHIFT SUMMARY PT HAS BEEN RESTING IN BED OVERNIGHT. PT HAS BEEN AOX1, COOPERATIVE AND ABLE TO MAKE NEEDS KNOWN. HOWEVER, HE HAS BEEN IRRITABLE, ESPECIALLY WHEN ASKED QUESTIONS. PT HAS REPORTED LOW APPETITE, STATING HE "CAN'T EAT THIS" WHEN TALKING ABOUT HIS DINNER. PT HAS HAD NO OTHER COMPLAINTS TONIGHT. NO ACUTE EVENTS OVERNIGHT.
[2024-09-10 08:10] VITALS: BP 117/83
[2024-09-10 08:49] LABS: Albumin, Blood 3.2 g/dL (3.4-5.0); Bun/Creatinine Ratio 46.2 (12.0-20.0); Calcium, Blood 9.4 mg/dL (8.5-10.1); Creatinine, Blood 1.69 mg/dL (0.60-1.20); Globulin, Blood 3.1 g/dL (2.2-4.0); Potassium, Blood 3.6 mmol/L (3.5-5.5); Total Protein, Blood 6.3 g/dL (6.4-8.2)
[2024-09-10] MEDS ORDERED: Q-Tussin100 MG/5 M PO (13:40)
--- NOTE | 2024-09-10 16:14 | NUR ---
pt will be discharged back to [facility] and called and gave report to Angela castillo at the facility. all piv's removed from pt. pt and at bedside and have no questions or concerns at this time.
== END 2024-09-10 17:00 | DRG 445 ==
LOC: ER 18:00 → ERHOLD 18:01 → MEDS 18:01
PROVIDERS: Emergency Medicine; Internal Medicine; Nurse Practitioner Acute Care; ADMIT Internal Medicine
DX: K80.21 Calculus of gallbladder without cholecystitis with obstruction (principal); D68.9 Coagulation defect, unspecified; S42.302A Unspecified fracture of shaft of humerus, left arm, initial encounter for closed fracture; E87.1 Hypo-osmolality and hyponatremia; I13.0 Hypertensive heart and chronic kidney disease with heart failure and stage 1 through stage 4 chronic kidney disease, or unspecified chronic kidney disease; I50.22 Chronic systolic (congestive) heart failure; R18.8 Other ascites; K74.60 Unspecified cirrhosis of liver; K76.0 Fatty (change of) liver, not elsewhere classified; I25.10 Atherosclerotic heart disease of native coronary artery without angina pectoris; K82.8 Other specified diseases of gallbladder; J10.89 Influenza due to other identified influenza virus with other manifestations; I48.0 Paroxysmal atrial fibrillation; W19.XXXA Unspecified fall, initial encounter; E78.5 Hyperlipidemia, unspecified; E11.22 Type 2 diabetes mellitus with diabetic chronic kidney disease; Z79.02 Long term (current) use of antithrombotics/antiplatelets; Z79.01 Long term (current) use of anticoagulants; Z79.899 Other long term (current) drug therapy; Z79.84 Long term (current) use of oral hypoglycemic drugs; Z79.891 Long term (current) use of opiate analgesic; Z95.5 Presence of coronary angioplasty implant and graft; Z88.8 Allergy status to other drugs, medicaments and biological substances; Z87.891 Personal history of nicotine dependence
CPT/HCPCS: 36415; 71045; 76705; 80053; 80074; 80320; 82140; 82947; 83605; 83690; 83735; 83880; 85025; 85610; 86707; 87340; 87350; 93005; 93010; 94762; 96365; 96366; 96375; 97110; 97162; 97530; 99285-25; A9270; G0378; J1940; J2543; J7050

== ENCOUNTER 2024-10-13 16:07 | Inpatient (IN) | payer MEDICARE ==
[~2024-10-13] VITALS: Ht 172.7 cm; Wt 82.4 kg
[~2024-10-13 16:07] MED LIST changes: +ELIQUIS5 M2 PO; +Isosorbide Mono60 MG PO; +PRED FORTE5 ML BOTHEYES; -PREDNISOLO15 MG/5 ML; +Q-Tussin100 MG/5 M PO
[2024-10-13 16:43] LABS: BASOPHILS ABSOLUTE AUTO 0.02 K/mm3 (0.00-0.23); BASOPHILS PERCENT AUTO 0 % (0-2); EOSINOPHILS ABSOLUTE AUTO 0.03 K/mm3 (0.00-0.68); EOSINOPHILS PERCENT AUTO 0 % (0-6); Hematocrit 39.8 % (37.0-53.0); Hemoglobin 12.4 g/dL (13.5-17.5); IMMATURE GRAN ABSOLUTE AUTO 0.07 K/mm3 (0.00-0.10); IMMATURE GRAN PERCENT AUTO 1 % (0-1); LYMPHOCYTES ABSOLUTE AUTO 1.45 K/mm3 (0.84-5.20); LYMPHOCYTES PERCENT AUTO 11 % (21-46); MONOCYTES ABSOLUTE AUTO 1.13 K/mm3 (0.16-1.47); MONOCYTES PERCENT AUTO 8 % (4-13); Mean Corpuscular HGB 32.6 pg (26.0-34.0); Mean Corpuscular HGB Conc 31.2 g/dL (31.5-36.5); Mean Corpuscular Volume 105 fL (80-100); Mean Platelet Volume 11.7 fL (9.1-12.4); NEUTROPHILS PERCENT AUTO 80 % (41-73); Platelet Count 186 K/mm3 (150-400); RDW Coefficient Variation 21.9 % (11.7-14.2); RDW Standard Deviation 84.5 fL (35.1-46.3)
[2024-10-13 17:26] LABS: Albumin, Blood 2.3 g/dL (3.4-5.0); Albumin/Globulin Ratio 0.8 (0.8-1.8); Bilirubin, Total 3.8 mg/dL (0.1-1.0); Bun/Creatinine Ratio 44.7 (12.0-20.0); Calcium, Blood 7.2 mg/dL (8.5-10.1); Creatinine, Blood 0.92 mg/dL (0.60-1.20); Globulin, Blood 2.8 g/dL (2.2-4.0); Potassium, Blood 6.3 mmol/L (3.5-5.5); Total Protein, Blood 5.1 g/dL (6.4-8.2)
[2024-10-13 17:31] LABS: Base Excess Venous -4.8 mmol/L; PCO2 Venous 35.8 mmHg (38-42); pH Blood Venous 7.37 (7.34-7.37)
[2024-10-13] MEDS ORDERED: Calcium Gluconate 10% 100 MG/ML INJ IV ONE (17:35)
[2024-10-13] MEDS ORDERED: Insulin Regular 100 Unit/ML 1ML Dose IV ONE (17:35)
[2024-10-13] MEDS ORDERED: Dextrose 50% 50 ML Syringe IV ONE (17:35)
[2024-10-13] MEDS ORDERED: Dextrose 50% 50 ML Vial IV ONE (17:40)
[2024-10-13] MEDS ORDERED: CALCIUM GLUC IN NACL, ISO-OSM 100 ML IV ONE (17:45)
[2024-10-13] MEDS ORDERED: Ondansetron HCl 2 MG / ML 2ML Vial IV PRN (18:45)
[2024-10-13] MEDS ORDERED: CALCIUM GLUC IN NACL, ISO-OSM 50 ML IV ONE (18:45)
[2024-10-13] MEDS ORDERED: Albumin (Human) 25gm/100ml 100 ML IV ONE (18:50)
[2024-10-13] MEDS ORDERED: FLU VACC TS2024-25(6MOS UP)/PF 45 MCG/0.5 ML SYRINGE IM SCH (18:50)
[2024-10-13] MEDS ORDERED: Enoxaparin 40 MG/0.4 ML SYR SC SCH (19:00)
[2024-10-13] MEDS ORDERED: Sodium Bicarb 8.4% 1 MEQ/ML 50 ML Vial IV ONE ×2 (19:00→20:10)
[2024-10-13 19:32] LABS: Source, Urine Straight Cath
[2024-10-13 19:39] LABS: Appearance, Urine Clear (Clear); Blood, Urine Neg (Neg); Color, Urine Amber (P-Yellow); Glucose Qualitative, Urine 4+ (Neg); Ketones, Urine Neg (Neg); Leukocyte Esterase, Urine Neg (Neg); Nitrite, Urine Neg (Neg); Protein, Urine 2+ (Neg); Urobilinogen, Urine 4+ (Normal); pH, Urine 6.5 (5.0-8.0)
[2024-10-13] MEDS ORDERED: Sodium Bicarb 8.4% 1 MEQ/ML 50 ML Vial ONE (19:42)
[2024-10-13 19:46] LABS: Bilirubin, Urine 1+ (Neg)
[2024-10-13 19:47] LABS: Bacteria Many /hpf; Squamous Epithelial Cells Rare /hpf (Few)
[2024-10-13] MEDS ORDERED: Sodium Bicarb 8.4% Inj 50 MEQ IV SCH (20:00)
[2024-10-13] MEDS ORDERED: SPIRONOLACTONE50 MG PO (20:52)
[2024-10-13 21:16] LABS: International Normalized Ratio 1.54
[2024-10-13 21:26] LABS: Bun/Creatinine Ratio 40.8 (12.0-20.0); Calcium, Blood 8.7 mg/dL (8.5-10.1); Creatinine, Blood 1.2 mg/dL (0.60-1.20); Potassium, Blood 5.9 mmol/L (3.5-5.5)
[2024-10-13 22:30] VITALS: BP 111/79
[2024-10-14] MEDS ORDERED: TraZODone HCl 50 MG Tab PO PRN (00:05)
[2024-10-14] MEDS ORDERED: Magnesium Hydroxide Conc 10 ML UDC PO PRN (00:10)
--- NOTE | 2024-10-14 01:52 | NUR ---
ADMIT NOTE FOR 10/13/24 966 REPORT RECEIVED FROM THE ER. PT WAS BROUGHT DOWN ON THE GURNEY AND TRANSFERRED OVER TO THE BED. PT ALERT ORIENTED TO SELF ONLY. PTS STAYED HERE AT THE BEDSIDE. SHE STATED THAT PT IS NORMALLY CONFUSED BUT IS MORE CONFUSED THEN NORMALLY. PT IS A PT AT THE [facility] AND IS NORMALLY ON BEDREST AND IS UNABLE TO STAND. SHE ALSO STATED THAT HE IS A DNR AND I GOT THE CODE STATUS CHANGED AND BRACELET WAS PUT ON HIM. HES KEPT TURNED AND REPOSITIONED. HE HAS MULTIPLE SKIN ISSUES INCLUDING A OPEN AREA TO HIS COCCYX, ABRASION TO HIS LEFT OUTER 1ST TOE, AREA IN BETWEEN HIS LT 4TH AND 5TH TOES, SCATTERED SCABBED AREAS AND VERY DRY SKIN WITH SCATTERED BRUISES. HE IS CURRENTLY NPO AND HE HAS A ORDER FOR A PARACENTESIS IN THE AM. HIM AND HIS WERE ORIENTED TO THE ROOM AND TO THE STAFF HES CURRENTLY RESTING IN BED WITH CALL LIGHT IN REACH
[2024-10-14 04:45] VITALS: BP 110/89
--- NOTE | 2024-10-14 04:57 | NUR ---
SHIFT SUMMARY PT WAS A ADMIT FROM THE ER LAST NIGHT AT 2150. ALERT ORIENTED X 1 DOESNT LIKE TO BE TOUCHED OR CHANGED AND WILL YELL OUT. I APPLIED DRESSINGS TO BILATERAL FEET. LT OUTER BIG TOE HAS A ABRASION ON IT AND MULTIPLE SCABS AND SORE IN BETWEEN 4TH AND 5TH TOES. HE ALSO HAS A OPEN AREA TO HIS COCCYX THAT I APPLIED A DRESSING ON. HE HAS MULTIPLE BRUISES TO BILTERAL ARMS AND HANDS. SKIN IS VERY DRY AND PEELING. HE HAS A BRIEF ON AND IS INCONTINENT OF B&B. HES BEDREST WHICH IS AT HIS BASELINE. VSS ON RA SATTING AT 99-100%. HE GETS TACHNEIC WHEN BEING BOTHERED. HE REMAINS NPO AND WILL HAVE A PARACENTESIS TODAY. HIS POTASSIUM WAS ELEVATED ON ADMIT, MEDS WERE GIVEN AND LABS WILL BE RECHECKED THIS AM. HIS ABDOMEN IS DISTENDED AND FIRM R/T HX OF LIVER FAILURE WITH ASCITES. RESTING IN BED AT THIS TIME WITH HIS AT BEDSIDE AND CALL LIGHT IN REACH
--- NOTE | 2024-10-14 06:31 | NUR ---
RADIOLOGY CALLED AND SAID THAT PT HAS TO BE OFF OF PLAVIX AND ELIQUIS X 5 DAYS BEFORE HAVING THORACENTESIS WILL GET A ORDER TO HOLD BOTH
[2024-10-14 06:42] LABS: Albumin, Blood 3.5 g/dL (3.4-5.0); Albumin/Globulin Ratio 1.8 (0.8-1.8); Bilirubin, Total 4.1 mg/dL (0.1-1.0); Bun/Creatinine Ratio 38.7 (12.0-20.0); Calcium, Blood 9.1 mg/dL (8.5-10.1); Creatinine, Blood 1.24 mg/dL (0.60-1.20); Globulin, Blood 1.9 g/dL (2.2-4.0); Potassium, Blood 5.5 mmol/L (3.5-5.5); Total Protein, Blood 5.4 g/dL (6.4-8.2)
[2024-10-14 06:49] LABS: BASOPHILS ABSOLUTE AUTO 0.01 K/mm3 (0.00-0.23); BASOPHILS PERCENT AUTO 0 % (0-2); EOSINOPHILS ABSOLUTE AUTO 0.02 K/mm3 (0.00-0.68); EOSINOPHILS PERCENT AUTO 0 % (0-6); Hematocrit 36.9 % (37.0-53.0); Hemoglobin 12.3 g/dL (13.5-17.5); IMMATURE GRAN ABSOLUTE AUTO 0.07 K/mm3 (0.00-0.10); IMMATURE GRAN PERCENT AUTO 1 % (0-1); LYMPHOCYTES ABSOLUTE AUTO 1.37 K/mm3 (0.84-5.20); LYMPHOCYTES PERCENT AUTO 11 % (21-46); MONOCYTES ABSOLUTE AUTO 0.97 K/mm3 (0.16-1.47); MONOCYTES PERCENT AUTO 8 % (4-13); Mean Corpuscular HGB 33.4 pg (26.0-34.0); Mean Corpuscular HGB Conc 33.3 g/dL (31.5-36.5); Mean Platelet Volume 11.6 fL (9.1-12.4); NEUTROPHILS ABSOLUTE AUTO 9.94 K/mm3 (1.96-9.15); NEUTROPHILS PERCENT AUTO 80 % (41-73); Platelet Count 186 K/mm3 (150-400); RDW Coefficient Variation 22.3 % (11.7-14.2); RDW Standard Deviation 81.4 fL (35.1-46.3); Red Blood Cell Count 3.68 M/mm3 (4.30-5.90); White Blood Cell Count 12.38 K/mm3 (4.00-11.30)
[2024-10-14 06:51] LABS: Mean Corpuscular Volume 100 fL (80-100)
[2024-10-14 07:56] VITALS: BP 105/72
[2024-10-14] MEDS ORDERED: Apixaban 5 MG Tab PO SCH (09:00)
[2024-10-14] MEDS ORDERED: Torsemide 20 MG TAB PO SCH (09:00)
[2024-10-14] MEDS ORDERED: Metoprolol Succinate 25 MG TABCR PO SCH (09:00)
[2024-10-14] MEDS ORDERED: Clopidogrel Bisulfate 75 MG Tab PO SCH (09:00)
[2024-10-14 12:00] VITALS: BP 101/67
[2024-10-14 15:10] VITALS: BP 102/89
[2024-10-14] MEDS ORDERED: ATHLETE'S FOO35.4 GM (16:27)
--- NOTE | 2024-10-14 18:28 | NUR ---
PATIENT A/OX2-3, TURNING Q2 HOURS IN BED. PATIENT IS WC BOUND AT BASELINE. VSS, ON RA. TOLERATING 2G NA+ DIET. DRESSINGS TO COCCYX AND FEET REMAIN C/D/I. FALL PRECAUTIONS IN PLACE. PLAVIX HELD TODAY FOR PARACENTESIS. NO NEW CONCERNS TODAY. AT BEDSIDE FOR MOST OF THE DAY.
[2024-10-14 19:40] VITALS: BP 112/73
[2024-10-14] MEDS ORDERED: Arginine/Glutamine/Calcium Hmb 1 Packet PO SCH (21:00)
[2024-10-14 23:45] VITALS: BP 106/69
[2024-10-15 03:49] VITALS: BP 116/75
--- NOTE | 2024-10-15 04:17 | NUR ---
SHIFT SUMMARY ALERT. ORIENTED TO PERSON AND SOMETIMES PLACE (HOSPITAL) ,NOT ORIENTED to TIME OR SITUATION AND AT TIMES FORGETS IS IN THE HOSPITAL, PT IS CONFUSED. RESPONSES ARE SLOW AND OFTEN INCONGRUENT TO THE SITUATION OR CONVERSATION TAKING PLACE. PULLED OUT IV DURING THE NIGHT. DRESSINGS CHANGED TO BILATERAL FEET. NON ADHERENT ADAPTIC GAUZE APPLIED TO AREAS OF RED SHINY DENUDED SKIN. THEN WTAPPED LIGHTLY WITH KERLIX THEN SECURED WITH HORACE WRAP. DI NOT TOLERATE WEE ALTHOUGH CONTINUALLY DENIES PAIN WHILE NONVERBAL SX OF PAIN PRESENT. RECOMMEND PRN IV PAIN MEDICATION BE GIVEN BEFORE ANY FUTURE DRESSING CHANGES. WILL NEED ORDER FOR THIS & WILL RELAY IN A.M. SHIFT REPORT. BED ALARM ON FOR SAFETY. FOAM DRESSING CDI TO COCCYX, PT TURNED EVERY 2 HRS . INCONTINENT OF LG AMT URINE OVERNIGHT. PT COOPERATIVE WT CARE, SEVERE ACSITES WELL BILAT UPPER LEG/HIP AREA EDEMA; PITTING.
[2024-10-15 07:39] VITALS: BP 106/68
[2024-10-15] MEDS ORDERED: Acetaminophen 325 MG TABLET PO PRN (08:05)
[2024-10-15] MEDS ORDERED: Furosemide 10 MG/ML 4ML Vial IV SCH (09:00)
[2024-10-15 10:59] LABS: BASOPHILS ABSOLUTE AUTO 0.01 K/mm3 (0.00-0.23); BASOPHILS PERCENT AUTO 0 % (0-2); EOSINOPHILS ABSOLUTE AUTO 0.07 K/mm3 (0.00-0.68); EOSINOPHILS PERCENT AUTO 1 % (0-6); Hematocrit 37.7 % (37.0-53.0); Hemoglobin 12.4 g/dL (13.5-17.5); IMMATURE GRAN ABSOLUTE AUTO 0.06 K/mm3 (0.00-0.10); IMMATURE GRAN PERCENT AUTO 1 % (0-1); LYMPHOCYTES ABSOLUTE AUTO 1.43 K/mm3 (0.84-5.20); LYMPHOCYTES PERCENT AUTO 11 % (21-46); MONOCYTES ABSOLUTE AUTO 0.99 K/mm3 (0.16-1.47); MONOCYTES PERCENT AUTO 8 % (4-13); Mean Corpuscular HGB Conc 32.9 g/dL (31.5-36.5); Mean Corpuscular Volume 100 fL (80-100); Mean Platelet Volume 11.4 fL (9.1-12.4); NEUTROPHILS ABSOLUTE AUTO 10.26 K/mm3 (1.96-9.15); NEUTROPHILS PERCENT AUTO 80 % (41-73); Platelet Count 189 K/mm3 (150-400); RDW Coefficient Variation 22.2 % (11.7-14.2); RDW Standard Deviation 81.4 fL (35.1-46.3); Red Blood Cell Count 3.76 M/mm3 (4.30-5.90); White Blood Cell Count 12.82 K/mm3 (4.00-11.30)
[2024-10-15 11:29] VITALS: BP 98/65
[2024-10-15 11:41] LABS: Albumin, Blood 3.1 g/dL (3.4-5.0); Albumin/Globulin Ratio 1.3 (0.8-1.8); Bilirubin, Total 3.7 mg/dL (0.1-1.0); Bun/Creatinine Ratio 38.8 (12.0-20.0); Calcium, Blood 8.9 mg/dL (8.5-10.1); Creatinine, Blood 1.21 mg/dL (0.60-1.20); Globulin, Blood 2.3 g/dL (2.2-4.0); Total Protein, Blood 5.4 g/dL (6.4-8.2)
[2024-10-15] MEDS ORDERED: JUVEN PACKET1 EAC3 PO (15:23)
[2024-10-15] MEDS ORDERED: FURO40 PO (15:24)
--- NOTE | 2024-10-15 16:27 | NUR ---
PATIENT D/C'D TO [facility] VIA GURNEY TRANSPORT. DC PACKET SENT WITH DUPLICATOR PUNCH OPERATOR. REPORT CALLED TO CATRINA, NURSE AT [facility]. IS AWARE OF TRANSFER AND WILL MEET PATIENT THERE.
== END 2024-10-15 16:30 | DRG 640 ==
LOC: ER 16:07 → MEDS 16:08
PROVIDERS: Internal Medicine; Student in an Organized Health Care Education/Training Program; ADMIT Internal Medicine
DX: E87.5 Hyperkalemia (principal); I50.23 Acute on chronic systolic (congestive) heart failure; R18.8 Other ascites; K74.60 Unspecified cirrhosis of liver; L89.152 Pressure ulcer of sacral region, stage 2; I11.0 Hypertensive heart disease with heart failure; I48.0 Paroxysmal atrial fibrillation; I25.10 Atherosclerotic heart disease of native coronary artery without angina pectoris; Z66 Do not resuscitate; E78.00 Pure hypercholesterolemia, unspecified; E88.09 Other disorders of plasma-protein metabolism, not elsewhere classified; E87.20 Acidosis, unspecified; E11.9 Type 2 diabetes mellitus without complications; Z79.01 Long term (current) use of anticoagulants; Z79.52 Long term (current) use of systemic steroids; Z79.02 Long term (current) use of antithrombotics/antiplatelets; Z79.84 Long term (current) use of oral hypoglycemic drugs; Z88.8 Allergy status to other drugs, medicaments and biological substances; Z95.5 Presence of coronary angioplasty implant and graft
CPT/HCPCS: 36415; 74174; 80048; 80053; 81001; 82140; 82803; 82947; 85025; 85610; 85730; 87077; 87086; 87186; 93005; 93010; 96372-59; 96374-59; 96375-59; 97110; 97161; 99285-25; A9270; G0378; J0612; J1650; J1815; J1940; J7799; P9047; Q9967

== ENCOUNTER 2024-10-21 01:25 | Day surgery (SDC) | payer MEDICARE ==
[~2024-10-21 01:25] MED LIST changes: +ATHLETE'S FOO35.4 GM; +FURO40 PO; +JUVEN PACKET1 EAC3 PO; +SPIRONOLACTONE50 MG PO
[2024-10-21] MEDS ORDERED: Lidocaine HCl 4% Cream 5 GM ONE ×2 (14:33)
== END 2024-10-21 23:00 | disposition home or self-care (01) ==
LOC: WOUND 01:25
DX: L89.152 Pressure ulcer of sacral region, stage 2 (principal); E11.9 Type 2 diabetes mellitus without complications; I25.10 Atherosclerotic heart disease of native coronary artery without angina pectoris; I11.0 Hypertensive heart disease with heart failure; I50.9 Heart failure, unspecified; F03.90 Unspecified dementia, unspecified severity, without behavioral disturbance, psychotic disturbance, mood disturbance, and anxiety; Z79.84 Long term (current) use of oral hypoglycemic drugs; Z88.8 Allergy status to other drugs, medicaments and biological substances; Z95.5 Presence of coronary angioplasty implant and graft
CPT/HCPCS: A9270; G0463